=== PATIENT | female | born 1940 | race Caucasian/White ===

== ENCOUNTER 2022-05-10 12:02 | Emergency (ER) | payer MEDICARE, MEDICAID, SELFPAY ==
[2022-05-10 12:03] VITALS: BP 178/88; PULSE 64; RESP 16; TEMP 36.8; O2SAT 93
--- NOTE | 2022-05-10 12:16 | PC.NURSE ---
pt arrives via EMS from [facility] for reports of an unwitnessed fall. c/o left hip pain and bruising to nose. unable to assess for shortening or rotation due to pt laying on right side with legs bent. pt alert and oriented to person and place. disoriented to year. pt able to follow commands, answering questions appropriately. Pts she does not walk and is reliant on a wheelchair. pt reports she fell because she was trying to get up. Pt speech clear, speaking in complete sentences without difficulty. lung sounds clear bilat. PERRL. bruising noted to bridge of nose.
--- NOTE | 2022-05-10 12:21 | CTR_ITS ---
PROCEDURE INFORMATION: Exam: CT Head Without Contrast Exam date and time: 05/10/2022 1:04 PM Age: 81 years old Clinical indication: Injury or trauma; Fall; Blunt trauma (contusions or hematomas); Without loss of consciousness TECHNIQUE: Imaging protocol: Computed tomography of the head without contrast. Axial, coronal and sagittal reformatted images were created and reviewed. Radiation optimization: All CT scans at this facility use at least one of these dose optimization techniques: automated exposure control; mA and/or kV adjustment per patient size (includes targeted exams where dose is matched to clinical indication); or iterative reconstruction. COMPARISON: No relevant prior studies available. RADIATION DOSE METRICS: Total DLP (mGy-cm): 1191.4 FINDINGS: Brain: Patchy and confluent areas of hypoattenuation in the periventricular and subcortical white matter, consistent with chronic small vessel ischemic disease. Focal, well-circumscribed hypodensities in the basal ganglia, thalami and left cerebellum, consistent with chronic lacunar infarcts. No CT evidence of acute intracranial hemorrhage or acute territorial infarction. No significant mass effect or midline shift. Basal cisterns patent. Cerebral ventricles: Prominence of the cortical sulci, cisterns and ventricular system, consistent with cerebral and cerebellar volume loss. Paranasal sinuses: Unremarkable. No fluid levels. Mastoid air cells: Grossly unremarkable. Bones/joints: Minimally displaced fractures of the left greater than right anterior nasal bones. Mildly buckled fracture of the osseous nasal septum. Soft tissues: Perinasal soft tissue swelling. Vasculature: Calcific atherosclerotic disease in the cavernous internal carotid arteries, as well as the vertebro-basilar system. CT/CT head wo con* [id number]: 1[address] No CT evidence of acute intracranial pathology. 2. Minimally displaced fractures of the left greater than right anterior nasal bones and mildly buckled fracture of the osseous nasal septum. 3. Additional findings, as above.
--- NOTE | 2022-05-10 12:21 | XR_ITS ---
WS: [id number] Exam: XR hip LT 2-3V wo/w pel* [id number] Date/Time of Exam: 05/10/2022 12:55 PM Reason For Exam: fall; include pelvis Comparison 07/26/2018. A left hip prosthesis is in place in satisfactory position. No sign of loosening or fracture. No acut e pelvic fracture is noted. Osteopenia noted. Normal soft tissues. XR/XR hip LT 2-3V wo/w pel* [id number] IMPRESSION: 1. Left hip prosthesis showing no sign of the fracture or loosening. 2. No acute pelvic fracture noted. Marked osteopenia.
--- NOTE | 2022-05-10 12:21 | CTR_ITS ---
PROCEDURE INFORMATION: Exam: CT Maxillofacial Without Contrast Exam date and time: 05/10/2022 1:04 PM Age: 81 years old Clinical indication: Injury or trauma; Fall; Blunt trauma (contusions or hematomas); Nose TECHNIQUE: Imaging protocol: Computed tomography of the of the face without contrast. Axial, coronal and sagittal reformatted images were created and reviewed. Radiation optimization: All CT scans at this facility use at least one of these dose optimization techniques: automated exposure control; mA and/or kV adjustment per patient size (includes targeted exams where dose is matched to clinical indication); or iterative reconstruction. COMPARISON: No relevant prior studies available. RADIATION DOSE METRICS: Total DLP (mGy-cm): 594.4 FINDINGS: Orbital cavities: Orbits are normal. Globes are unremarkable. Bones/joints: Minimally displaced fractures of the left greater than right anterior nasal bones. Mildly buckled fracture of the osseous nasal septum. Paranasal sinuses: Normal. No air-fluid levels. Mastoid air cells: Minimal opacification and sclerosis of the mastoid air cells. Soft tissues: Perinasal soft tissue swelling. CT/CT facial bones wo con* [id number] IMPRESSION: 1. Minimally displaced fractures of the left greater than right anterior nasal bones and mildly buckled fracture of the osseous nasal septum. 2. Additional findings, as above.
--- NOTE | 2022-05-10 12:23 | ED_ITS ---
HPI - Fall General: Chief Complaint: Fall Stated Complaint: fall, left hip pain Time Seen by Provider: 05/10/22 12:13 Source: EMS and other ([facility] ) Mode of arrival: EMS Limitations: no limitations History of Present Illness: This patient was transported by EMS from local [facility]. The patient states that she was getting out of bed attempting to transfer to her wheelchair and was leaning forward and lost her balance and fell forward striking her nose and face on the floor. She states she did not suffer a loss of consciousness. She states she has been some pain in her nose but did not have any bleeding. She states she also has some pain in her left hip region. She states she has not ambulatory and uses a wheelchair for mobility. She denies any loss of consciousness associated with her fall. She denies any other injury. She denies taking any antiplatelet or anticoagulant medications. Fall from: out of bed Place fall occurred: intermediate/[facility]NF Loss of consciousness: None Symptoms prior to fall: none Location of injury: face and pelvis (left) Associated symptoms-after fall: Denies chest pain, confusion, headache(s) or neck pain Review of Systems Const: Denies: fever(s) or chills Eyes: Denies: change in vision Card: Denies: chest pain, palpitations, syncope or pre-syncope Resp: Denies: dyspnea, productive cough or non-productive cough GI: Denies: nausea, vomiting or diarrhea : Reports: urinary incontinence Musc: Reports: extremity pain; Denies: neck pain or back pain Skin/Breast: Denies: rash, pruritus or erythema Neuro: Denies: headache(s), numbness in extremities, dizziness, confusion or seizure-like activity Torsten/Lymph: Denies: easy bruising or easy bleeding Physical Exam Narrative: EXAM NARRATIVE: She is alert, makes good eye contact, is cooperative and oriented to person and place Const: COMMON NORMALS: no acute distress and average body habitus GENERAL APPEARANCE: cooperative ORIENTATION/CONSCIOUSNESS: Yes awake, Yes oriented to person and Yes oriented to place HENMT: COMMON NORMALS: external ears normal, Normal nasal mucous membranes and turbinates present, moist oral mucous membranes and oropharynx normal HEAD & SCALP: normal to inspection; no palpable skull fracture, no raccoon eyes and no scalp tenderness NOSE: Normal nasal mucous membranes and turbinates present and Normal septum present; no Epistaxis present EXTERNAL EAR: Yes external ears normal OTHER: HEENT examination is remarkable for swelling to the bridge and soft tissues of the nose. There is some palpable tenderness over the nasal bridge but no laceration. There is nasal septum is midline without any active bleeding. There is no TMJ tenderness and she has no pain with occlusion. Eye: COMMON NORMALS: Equal, round and reactive pupils present, EOMs intact bilaterally and conjunctivae normal CONJUNCTIVA: Yes conjunctivae normal PUPIL: Yes Equal, round and reactive pupils present Neck/C-Spine: COMMON NORMALS: full ROM CERVICAL SPINE: Yes cervical ROM normal, No pain with cervical ROM, No Cervical spine tenderness, No step off deformity, No Paracervical muscle tenderness, No Paracervical spasm and No Trapezius muscle tenderness Chest: COMMONS NORMALS: normal inspection of the chest Resp: COMMON NORMALS: normal respiratory effort, No use of accessory muscles and clear to auscultation bilaterally EFFORT & INSPECTION: Yes able to speak in complete sentences AUSCULTATION: clear to auscultation bilaterally Cardio: COMMON NORMALS: regular rhythm, No murmurs present (Cardio) and Peripheral pulses 2+ throughout RHYTHM: regular rhythm PERIPHERAL PULSES: Peripheral pulses 2+ throughout GI: COMMON NORMALS: Normal to inspection, nondistended, normoactive bowel sounds present, Soft to palpation and non-tender PALPATION: Yes Soft to palpation : COMMON NORMALS: Yes no CVA tenderness BLADDER/KIDNEY EXAM: Yes no CVA tenderness Back/Pelvis: COMMON NORMALS: no CVA tenderness, thoracic and lumbar spine normal to inspection and thoraco-lumbar ROM normal PELVIS: Yes no pain with anterior-posterior compression and Yes no pain with lateral compression SACROILIAC JOINTS: Yes SI joint(s) abnormal SI joint details: tender to palpation (Left posterior pelvis just inferior to the posterior superior iliac spine.) Extremity: COMMON NORMALS: capillary refill normal, no joint enlargement, no calf tenderness and no pedal edema NARRATIVE EXTREMITY EXAM: Extremity examination reveals noted extremity deformity. Range of motion at both upper extremities at proximal and distal joints is normal. There is no deformity. No ecchymosis. The right lower extremity has normal range of motion at proximal and distal joints. No deformity no ecchymosis. The left lower extremity has normal appearance. She has nontender knee and ankle joints. There are some mild tenderness over the lateral posterior portion of the left hip however able to flex and extend and internally and externally rotate without any subjective symptoms. Neuro: COMMON NORMALS: moves all extremities, no focal motor deficits and no sensory deficits noted SENSORIUM/ORIENTATION: Yes oriented to person and Yes oriented to place SPEECH: speech normal Psych: COMMON NORMALS: cooperative Skin: COMMON NORMALS: no rashes or lesions noted, turgor normal, no petechiae and no mottling GENERAL SKIN EXAM: no rashes or lesions noted, turgor normal and ecchymosis Course Reevaluation(s): Reevaluation #1: Patient was reevaluated. No new or focal findings. No if issues with nosebleeding, difficulty breathing development of septal hematoma etc. She remains alert and cooperative. No other significant findings on her imaging other than her nasal bone fracture. Time: 13:59 Vital Signs: Vital signs: Vital Signs Temperature 98.2 F 05/10/22 12:03 Pulse Rate 91 05/10/22 13:33 Respiratory Rate 18 05/10/22 13:33 Blood Pressure 158/91 05/10/22 13:33 Pulse Oximetry 91 05/10/22 13:33 Oxygen Delivery Me thod 05/10/22 12:03 Oxygen Flow Rate 2 05/10/22 12:03 MDM - Fall Medical Decision Making Patient was a ground-level fall from bed transported from the local long-term care facility. Patient not have any history or clinical findings to support syncope or any other prodrome to her fall other than a gravity related fall. Imaging did not reveal anything of serious noted other than a nasal bone fracture. No evidence of septal hematoma, nasal obstruction etc. At this point no indication for any intervention in the emergency department or afterwards unless clinically indicated. She is stable at this time to be return to the long-term care facility for for continuation of her usual care. Medical Records I reviewed the patient's medical records. Lab Data I reviewed the patient's lab results. Radiology Impressions Face CT 05/10/22 12:21 IMPRESSION: 1. Minimally displaced fractures of the left greater than right anterior nasal bones and mildly buckled fracture of the osseous nasal septum. 2. Additional findings, as above. Head CT 05/10/22 12:21 IMPRESSION: 1. No CT evidence of acute intracranial pathology. 2. Minimally displaced fractures of the left greater than right anterior nasal bones and mildly buckled fracture of the osseous nasal septum. 3. Additional findings, as above. Hip/Pelvis X-Ray 05/10/22 12:21 IMPRESSION: 1. Left hip prosthesis showing no sign of the fracture or loosening. 2. No acute pelvic fracture noted. Marked osteopenia. Discharge Plan Discharge Patient Disposition: LTCH w Plan Readm Clinical Impression: Closed fracture nasal bone, Fall from ground level Condition: Stable Prescriptions: No Action multivitamin Tablet 1 tab PO DAILY@08 atorvastatin 40 mg Tablet 40 mg PO DAILY@08 acetaminophen 325 mg Tablet 650 mg PO Q6H PRN (Reason: Pain) levetiracetam 500 mg Tablet 500 mg PO BID@08,20 donepezil 10 mg Tablet 10 mg PO BEDTIME@20 amlodipine 2.5 mg Tablet 2.5 mg PO DAILY@08 Aspir-81 81 mg Tablet,Delayed Release (Dr/Ec) 81 mg PO DAILY@08 Protonix 20 mg Tablet,Delayed Release (Dr/Ec) 20 mg PO DAILY@08 levothyroxine 75 mcg Tablet 75 mcg PO DAILY@07 Celexa 20 mg Tablet 20 mg PO BEDTIME@20 folic acid 1 mg Tablet 1 mg PO DAILY@08 hydrochlorothiazide 25 mg Tablet 25 mg PO DAILY lisinopril 40 mg Tablet 40 mg PO DAILY@08 MAG-AL 200-200 mg/5 mL Suspension 30 ml PO Q6H PRN (Reason: Indigestion) thiamine mononitrate (vit B1) 100 mg Tablet 100 mg PO DAILY@08 Biofreeze (menthol) 4 % Gel See Rx Instructions .ROUTE .COMPLEX Rx Instructions: apply to sore muscles topically every 8 hours as needed for sore muscles and joints Discharge Orders: Discharge ED (Routine); Ordered 05/10/22 Ordered By: Leo Blankenship Discharge Diet: Usual diet Discharge Activity: Resume usual activity Activity Restrictions/Additional Instructions: Mrs. Rowland has evidence of nasal bone fracture but otherwise no serious injury at this time. Is appropriate to allow her to take her usual medications. You may place ice to the bridge of her nose for 10 to 15 minutes 2-3 times daily to help with swelling. She did develops uncontrolled nasal bleeding, difficulty breathing or other concerns to include change in mental status etc. return her to the emergency department for reevaluation. Otherwise have her followed by the attending physician. Coding Level of Care Code ED Spray Dry Operator for Chg Fwd Exam Comprehensive
--- NOTE | 2022-05-10 12:52 | PC.PHAR ---
pt is from [facility] [phone]-per ciara nurse at [facility] pt had all am meds today-ciara nurse at [facility] states hctz was dced on 05/08/22 pts medication mar has as active med-ciara ramires the pts clonidine 0.3mg/24hr patch was on hold 05/08/22 to 05/15/22 ciara states chau went ahead and dced medication-
[2022-05-10 13:33] VITALS: BP 158/91; PULSE 91; RESP 18; O2SAT 91
== END 2022-05-10 14:10 ==
PROVIDERS: Emergency Provider Emergency Medicine
DX: S02.2XXA Fracture of nasal bones, initial encounter for closed fracture (principal); W06.XXXA Fall from bed, initial encounter
CPT/HCPCS: 70450; 70486; 73502; 99284